=== PATIENT | female | born 1965 | race Caucasian/White ===

== ENCOUNTER 2018-03-07 23:14 | Emergency (ER) | payer OTHER ==
[~2018-03-07] VITALS: Ht 152.4 cm; Wt 59.0 kg
[~2018-03-07 23:14] MED LIST: ADIPEX-P37.5 M1; AMITRIPTYLINE H25 M4 PO; ASPIR 8181 MG PO; ASPIR-TRIN325 MG PO; B COMPLEX1 EAC1 PO; BACTRIM DS TAB1 EACH PO; CARAFATE 1 GM TA1 G1; CIPROFLOXACIN500 M1 PO; COCONUT OIL1000 MG PO; COLACE100 MG PO; COUMADIN 3 MG TA3 M1 PO; COUMADIN 5 MG TA5 M1 PO; CYMBALTA30 MG PO; DOXYCYCLINE 10100 MG PO; ELIQUIS5 MG PO; ENOXAPARIN80 MG/0.1 SUBQ; ERGOCALCIF50000 UNIT PO; FLEXERIL PO; HYDROCODON-ACE1 EAC7 PO; IBUPROFEN 800800 M1 PO; KLOR-CON20 ME1 PO; KLOR-CON25 ME1; LASIX 20 MG TAB20 MG PO; LIPITOR 20 MG T20 M1 PO; MEGA BIOTIN10000 MCG PO; NORCO 5-325 TA1 EACH PO; OXYCONTIN20 M1 PO; PERCOCET 7.5-31 EACH PO; PHENERGAN 25 MG25 M1 PO; PLAVIX 75 MG TA75 M1 PO; PLAVIX 75 MG TA75 MG PO; PREDNISONE50 MG PO; PRILOSEC 10MG C10 MG; PROBIOTIC1 EAC6 PO; PYRIDIUM200 MG PO; TOPAMAX 25 MG T25 M1 PO; TRIAMCINOLONE A80 G2 TOP; VITAMIN D 5050000 I1 PO; VITAMIN D1000 UNI1 PO; WELLBUTRIN SR100 MG; ZIAGEN 300 MG300 MG; ZYRTEC10 M5 PO
[2018-03-07 23:52] LABS: ABSOLUTE BASOPHILS 0.1 thou/uL (0.0-0.2); ABSOLUTE EOSINOPHILS 0.1 thou/uL (0.0-0.7); ABSOLUTE LYMPHOCYTES 2.4 thou/uL (0.8-5.3); ABSOLUTE MONOCYTES 0.4 thou/uL (0.0-1.2); ABSOLUTE NEUTROPHILS 3.5 thou/uL (1.6-8.1); BASOPHILS 0.9 %; EOSINOPHILS 1.7 %; HEMATOCRIT 40.3 % (37.0-47.0); HEMOGLOBIN 13.5 gm/dL (12.0-15.0); LYMPHOCYTES 36.9 %; MCH 28.5 pg (26.0-34.0); MCHC 33.5 g/dL (28.0-37.0); MCV 85.1 fL (80.0-100.0); MONOCYTES 6.1 %; MPV 7.7 fl. (7.2-11.1); NUCLEATED RBCS 0 /100WBC; PLATELET COUNT* 223 thou/uL (150-400); POLYS 54.4 %; RBC 4.74 mil/uL (4.20-5.00); RDW-CV 13.6 % (10.5-14.5); WBC 6.4 thou/uL (4.0-11.0)
[2018-03-08 00:07] LABS: APTT 29.5 Seconds (25.0-31.3); PROTIME 10.7 Seconds (9.20-11.50)
[2018-03-08] MEDS ORDERED: NORCO 5-325 TA1 EACH PO (00:12)
[2018-03-08 00:15] LABS: CALCIUM 8.7 mg/dL (8.5-10.1); POTASSIUM 3.3 mmol/L (3.5-5.1)
[2018-03-08 00:20] LABS: ALBUMIN 3.5 g/dL (3.4-5.0); TOTAL BILIRUBIN 0.3 mg/dL (<0.1-1.0); TOTAL PROTEIN 6.8 g/dL (6.4-8.2)
[2018-03-08 00:30] VITALS: BP 119/71
== END 2018-03-08 00:30 | disposition home or self-care (01) ==
LOC: M.ERS 23:14
PROVIDERS: Family Medicine
DX: M25.562 Pain in left knee (principal); I10 Essential (primary) hypertension; G43.909 Migraine, unspecified, not intractable, without status migrainosus; Z88.2 Allergy status to sulfonamides; Z88.5 Allergy status to narcotic agent; Z88.6 Allergy status to analgesic agent; Z86.73 Personal history of transient ischemic attack (TIA), and cerebral infarction without residual deficits; Z90.49 Acquired absence of other specified parts of digestive tract

== ENCOUNTER 2018-07-23 01:00 | Emergency (ER) | payer OTHER ==
[~2018-07-23] VITALS: Ht 154.9 cm; Wt 62.6 kg
[2018-07-23 01:17] LABS: ABSOLUTE BASOPHILS 0.1 thou/uL (0.0-0.2); ABSOLUTE EOSINOPHILS 0.1 thou/uL (0.0-0.7); ABSOLUTE LYMPHOCYTES 2.8 thou/uL (0.8-5.3); ABSOLUTE MONOCYTES 0.4 thou/uL (0.0-1.2); ABSOLUTE NEUTROPHILS 3.3 thou/uL (1.6-8.1); BASOPHILS 0.9 %; EOSINOPHILS 1.6 %; HEMATOCRIT 41.6 % (37.0-47.0); HEMOGLOBIN 14.4 gm/dL (12.0-15.0); LYMPHOCYTES 41.6 %; MCH 29.1 pg (26.0-34.0); MCHC 34.6 g/dL (28.0-37.0); MCV 84.2 fL (80.0-100.0); MPV 7.5 fl. (7.2-11.1); NUCLEATED RBCS 0 /100WBC; PLATELET COUNT* 219 thou/uL (150-400); POLYS 49.9 %; RBC 4.94 mil/uL (4.20-5.00); RDW-CV 13.5 % (10.5-14.5); WBC 6.6 thou/uL (4.0-11.0)
[2018-07-23 01:31] LABS: APTT 28.9 Seconds (25.0-31.3); PROTIME 10.5 Seconds (9.20-11.50)
[2018-07-23 01:37] LABS: ANION GAP 14 mmol/L (7-16); BUN 18 mg/dL (7-18); CALCIUM 9.2 mg/dL (8.5-10.1); CHLORIDE 106 mmol/L (98-107); CO2 22 mmol/L (21-32); CREATININE 1.1 mg/dL (0.6-1.3); GLUCOSE 106 mg/dL (70-99); POTASSIUM 3.3 mmol/L (3.5-5.1); SODIUM 142 mmol/L (136-145); TROPONIN-I LEVEL <0.06 ng/mL (<0.06)
[2018-07-23 01:39] LABS: ALKALINE PHOSPHATASE 117 U/L (46-116); NT-PRO BRAIN NAT PEPTIDE 62 pg/mL (<300); SGOT 24 U/L (15-37); SGPT 28 U/L (30-65); TOTAL BILIRUBIN 0.4 mg/dL (<0.1-1.0); TOTAL PROTEIN 7.5 g/dL (6.4-8.2)
[2018-07-23 02:59] LABS: URINE BILIRUBIN NEGATIVE (Negative); URINE BLOOD NEGATIVE (Negative); URINE CLARITY CLEAR; URINE COLOR YELLOW; URINE GLUCOSE-RANDOM NEGATIVE (Negative); URINE KETONES TRACE (Negative); URINE LEUKOCYTES-REFLEX TRACE (Negative); URINE NITRITE-REFLEX NEGATIVE (Negative); URINE PROTEIN NEGATIVE (Negative); URINE UROBILINOGEN 0.2 E.U./dl (0.2-1.0)
[2018-07-23 03:05] LABS: BACTERIA-REFLEX >30 Many /HPF (None Seen); HYALINE CASTS 0-3 Few /LPF (None Seen); MUCUS 4-6 Moderate strn/LPF (None Seen); SQUAMOUS 0-3 Few /LPF (0-3); URINE RBC 3-10 Few /HPF (0-2); URINE WBC-REFLEX 6-15 Few /HPF (0-5)
[2018-07-23 03:06] LABS: CRYSTALS None Seen /LPF (None Seen)
[2018-07-23 03:27] VITALS: BP 144/80
--- NOTE | 2018-07-23 10:41 | EKG ---
[place] [address] ELECTROCARDIOGRAM REPORT Name: FRANDY VELAZQUEZ Room: [facility]#: [id number] Admission: 07/23/18 Attend Phys: Discharge: 07/23/18 Date of : 65 Report #: [id number] THIS REPORT FOR: //name// [facility] ED Test Date: 2018-07-23 Test Time: 01:07:49 Pat Name: FRANDY VELAZQUEZ Department: Room: Gender: F [place]: [place] : 1965 Requested By: Jayjay Razo Order Number: [id number] MD: Octavio Palma Measurements Intervals [place] Rate: 74 P: 47 ND: 147 QRS: -26 QRSD: 109 T: 69 QT: 450 QTc: 500 Interpretive Statements Sinus rhythm Borderline left axis deviation Borderline prolonged QT interval Compared to ECG 09/17/2016 06:46:35 No significant changes Electronically Signed On 07-23-2018 10:41:05 CDT by Octavio Palma [email or web address] <ELECTRONICALLY SIGNED> By: Octavio Palma MD, [facility] 07/23/18 1041 6 6 Octavio Palma MD, FACC /EPI
== END 2018-07-23 03:31 | disposition home or self-care (01) ==
LOC: M.ERS 01:00
PROVIDERS: Family Medicine
DX: R42 Dizziness and giddiness (principal); I10 Essential (primary) hypertension; G43.909 Migraine, unspecified, not intractable, without status migrainosus; Z88.2 Allergy status to sulfonamides; Z88.5 Allergy status to narcotic agent; Z86.73 Personal history of transient ischemic attack (TIA), and cerebral infarction without residual deficits; Z90.49 Acquired absence of other specified parts of digestive tract